=== PATIENT | female | born 1980 | race Caucasian/White ===

== ENCOUNTER 2018-01-03 19:31 | Emergency (ER) | payer MEDICAID ==
[~2018-01-03] VITALS: Ht 154.9 cm; Wt 120.5 kg
[~2018-01-03 19:31] MED LIST: ALBU6.7H INH; BECL7.3A INH; BECL8.7A3 IH; METH4TAB PO; PRED20TA PO
[2018-01-03] MEDS ORDERED: ipratropium/albuterol 3ml nebule NEB ONE (19:35)
[2018-01-03 19:36] VITALS: BP 146/70
[2018-01-03] MEDS ORDERED: predniSONE 20 mg tablet PO STA (20:13)
[2018-01-03] MEDS ORDERED: METH4TAB3 PO (20:14)
== END 2018-01-03 20:29 | disposition home or self-care (01) ==
LOC: ER 19:31
DX: J45.901 Unspecified asthma with (acute) exacerbation (principal); Z88.0 Allergy status to penicillin; Z88.1 Allergy status to other antibiotic agents; Z91.040 Latex allergy status; Z91.018 Allergy to other foods; Z79.899 Other long term (current) drug therapy
CPT/HCPCS: 71045; 93005; 94640; 94760; 99284; J7512